=== PATIENT | female | born 1995 | race Caucasian/White ===

== ENCOUNTER 2018-11-23 14:07 | Emergency (ER) | payer MEDICAID ==
[~2018-11-23] VITALS: Ht 165.1 cm; Wt 133.4 kg
[2018-11-23 14:19] VITALS: BP 168/108; Ht 165.1 cm; Wt 133.4 kg
== END 2018-11-23 16:07 | disposition home or self-care (01) ==
LOC: ED 14:07
DX: L21.0 Seborrhea capitis (principal)